=== PATIENT | female | born 1950 | race Asian ===

== ENCOUNTER → 2022-06-06 | Day surgery (SDC) | payer MEDICARE ==
[2022-06-02 13:05] VITALS: BMI 21.5
[~2022-06-06] MED LIST: Glycopyrrolate 0.2 MG/ML 5 ML SYRINGE ONE; Midazolam HCl 2 mg/2 ml Vial ONE; PROPOFOL 40 ML ONE
== END ==
LOC: CSHSDC 08:53
PROVIDERS: ATTEND Internal Medicine Gastroenterology
PROC: 0DB98ZZ Excision of Duodenum, Via Natural or Artificial Opening Endoscopic (ICD-10-PCS; principal; 2022-06-06)
DX: K21.9 Gastro-esophageal reflux disease without esophagitis (principal); D50.9 Iron deficiency anemia, unspecified; E78.5 Hyperlipidemia, unspecified; I10 Essential (primary) hypertension; E11.9 Type 2 diabetes mellitus without complications; Z88.8 Allergy status to other drugs, medicaments and biological substances; Z79.84 Long term (current) use of oral hypoglycemic drugs; Z79.899 Other long term (current) drug therapy
CPT/HCPCS: 36416; 88305; J2250; J2704

== ENCOUNTER 2023-08-25 15:20 | Outpatient (CLI) | payer MEDICARE | END 2023-08-25 15:21 | disposition home or self-care (01) | LOC: CSHULT 15:20 | PROVIDERS: ATTEND Internal Medicine | DX: E04.1 Nontoxic single thyroid nodule (principal); E04.2 Nontoxic multinodular goiter | CPT/HCPCS: 76536 ==